=== PATIENT | male | born 2000 | race Caucasian/White ===

== ENCOUNTER 2024-12-21 14:21 | Emergency (ER) | payer OTHER ==
[~2024-12-21] VITALS: Ht 175.3 cm; Wt 77.0 kg
[2024-12-21 14:23] VITALS: O2SAT 98
[2024-12-21 15:00] LABS: BASOPHILS % 0.2 % (0.0-2.0); EOSINOPHILS % 0.1 % (0.0-5.0); HEMATOCRIT. 41.8 % (42.0-52.0); MEAN PLATELET VOLUME 7.4 fl (7.4-10.4); MONOCYTES % 6.1 % (2.0-8.0); NEUTROPHILS % 84.6 % (40.0-76.0); PLATELET 206 x1000/uL (130-400); RED BLOOD CELL COUNT 4.57 mill/uL (4.7-6.1); RED CELL DISTRIBUTION WIDTH 12.6 % (11.6-14.6); WHITE BLOOD COUNT 7.1 x1000/uL (4.5-11.0)
[2024-12-21 15:03] LABS: DIFFERENTIAL COMMENT 1
[2024-12-21 15:15] LABS: CHLORIDE 98 mEq/L (98-107); POTASSIUM 3.7 mEq/L (3.5-5.1); SODIUM 135 mEq/L (136-145)
[2024-12-21 15:16] LABS: CARBON DIOXIDE 26 mEq/L (21-32)
[2024-12-21 15:17] LABS: CALCIUM 8.9 mg/dL (8.7-10.4)
[2024-12-21 15:19] LABS: HEMOGLOBIN. 14.3 g/dL (14.0-18.0); MEAN CORPUSCULAR HGB CONC 34.3 g/dL (31.0-37.0); MEAN CORPUSCULAR VOLUME 96.1 fL (80.0-94.0)
[2024-12-21 15:21] LABS: CREATININE 0.8 mg/dL (0.6-1.3); GLUCOSE 103 mg/dL (70-105)
[2024-12-21 15:22] LABS: ETHANOL BLOOD < 10 mg/dL (<10); UREA NITROGEN BLOOD 9 mg/dL (9-23)
[2024-12-21 16:31] VITALS: BP 114/67; PULSE 76; RESP 18; TEMP 36.5; O2SAT 98
== END 2024-12-21 17:16 | disposition home or self-care (01) ==
LOC: ER 14:21
DX: R56.9 Unspecified convulsions (principal); Z79.899 Other long term (current) drug therapy
CPT/HCPCS: 80048; 80320; 83735; 85025; 36415; 99284; Z7610 ×3; A4606; G0480